=== PATIENT | male | born 1945 | race Caucasian/White ===

== ENCOUNTER 2025-07-22 10:34 | Outpatient (CLI) | payer MEDICARE ==
[2025-07-23 07:03] LABS: Estimated GFR - POC 90.0
== END 2025-07-22 10:35 | disposition home or self-care (01) ==
LOC: MRI 10:34
PROVIDERS: ATTEND Physician Assistant Medical
DX: K76.89 Other specified diseases of liver (principal); R10.13 Epigastric pain; N13.30 Unspecified hydronephrosis; K52.9 Noninfective gastroenteritis and colitis, unspecified; M47.816 Spondylosis without myelopathy or radiculopathy, lumbar region; M41.9 Scoliosis, unspecified
CPT/HCPCS: 36415; 74183; 82565

== ENCOUNTER 2025-09-14 06:20 | Day surgery (SDC) | payer MEDICARE ==
[2025-09-13 09:39] VITALS: BMI 23.7
[2025-09-14] MEDS ORDERED: Ondansetron PF 4 MG/2 ML Vial ONE (07:59)
== END 2025-09-14 09:35 | disposition home or self-care (01) ==
LOC: SDC 06:20
PROVIDERS: ATTEND Internal Medicine Gastroenterology
PROC: 0DB98ZX Excision of Duodenum, Via Natural or Artificial Opening Endoscopic, Diagnostic (ICD-10-PCS; principal; 2025-09-14)
PROC: 0DBA8ZX Excision of Jejunum, Via Natural or Artificial Opening Endoscopic, Diagnostic (ICD-10-PCS; 2025-09-14)
DX: R10.13 Epigastric pain (principal); R93.3 Abnormal findings on diagnostic imaging of other parts of digestive tract; I25.10 Atherosclerotic heart disease of native coronary artery without angina pectoris; I10 Essential (primary) hypertension; Z90.49 Acquired absence of other specified parts of digestive tract; Z95.5 Presence of coronary angioplasty implant and graft; Z79.82 Long term (current) use of aspirin; Z79.899 Other long term (current) drug therapy
CPT/HCPCS: 43239; J1100; J2405; 88305